=== PATIENT | female | born 1975 | race Caucasian/White ===

== ENCOUNTER 2023-11-30 14:59 | Outpatient (CLI) | payer OTHER | END 2023-11-30 15:00 | disposition home or self-care (01) | LOC: CSHRAD 14:59 | PROVIDERS: ATTEND Student in an Organized Health Care Education/Training Program | DX: M25.551 Pain in right hip (principal) ==

== ENCOUNTER 2024-07-09 17:00 | Outpatient (CLI) | payer OTHER | END 2024-07-09 17:01 | disposition home or self-care (01) | LOC: CSHSLEEP 17:00 | PROVIDERS: ATTEND Student in an Organized Health Care Education/Training Program | DX: G47.33 Obstructive sleep apnea (adult) (pediatric) (principal); R53.83 Other fatigue; R09.89 Other specified symptoms and signs involving the circulatory and respiratory systems; F32.A Depression, unspecified; F41.9 Anxiety disorder, unspecified; E66.9 Obesity, unspecified; Z68.27 Body mass index [BMI] 27.0-27.9, adult; R06.83 Snoring | CPT/HCPCS: 95811 ==